=== PATIENT | male | born 1985 | race Caucasian/White ===

== ENCOUNTER 2019-05-15 20:57 | Observation (INO) ==
[2019-05-15] MEDS ORDERED: *HR* LORazepam 2 MG/ML VIAL IM ONE (21:00)
[2019-05-15] MEDS ORDERED: *HR* LORazepam 2 MG/ML VIAL ONE (21:03)
[2019-05-15] MEDS ORDERED: Haloperidol Lactate 5 MG/ML VIAL IM ONE (21:15)
[2019-05-15 21:46] LABS: ABG Base Excess 2 mEq/L (-2 to 3); ABG HCO3 25 mEq/L (21-27); ABG Oxygen Saturation 92 % (95-98); ABG PCO2 34 mmHg (35-45); ABG PH 7.47 pH Units (7.32-7.45); ABG PO2 60 mmHg (85-104); ABG TCO2 26 mEq/L (20-26)
[2019-05-15 22:13] LABS: Amphetamine Screen,Urine Positive ng/mL (Cutoff=1000); Barbiturate Screen,Urine Negative ng/mL (Cutoff=200); Benzodiazepines Screen,Urine Negative ng/mL (Cutoff=200); Cannabinoid Screen,Urine Positive ng/mL (Cutoff = 50); Cocaine Screen,Urine Positive ng/mL (Cutoff= 300); Opiate Screen,Urine Negative ng/mL (Cutoff=300); Phencyclidine Screen,Urine Negative ng/mL (Cutoff=25)
[2019-05-15 22:20] LABS: Basophils # 0.1 K/mcL (0.0-0.2); Basophils % 0.7 %; Eosinophils # 0.1 K/mcL (0.0-0.6); Eosinophils % 0.4 %; Hematocrit 36.2 % (37.5-50.1); Hemoglobin 12.5 g/dL (12.9-16.9); Immature Granulocytes % 0.3 % (0-4); Lymphocytes # 1.2 K/mcL (0.6-4.6); Lymphocytes % 9.9 %; Mean Corpuscular HGB Conc 34.5 g/dL (31.6-35.5); Mean Corpuscular Hemoglobin 29.8 pg (28.0-33.3); Mean Corpuscular Volume 86.2 fL (83.0-100.0); Mean Platelet Volume 9.8 fL (9.4-12.4); Monocytes # 1.3 K/mcL (0.0-1.3); Monocytes % 10.7 %; Neutrophils # 9.4 K/mcL (1.6-8.9); Platelet Count 327 K/mcL (140-400); Red Cell Distribution Width 12.3 % (11.5-14.5); White Blood Count 12.1 K/mcL (4.3-11.1)
[2019-05-15 22:46] LABS: Acetaminophen < 10 mcg/mL (10-20); Alanine Aminotransferase 22 Units/L (7-52); Albumin/Globulin Ratio 1.3 (1.1-2.2); Alkaline Phosphatase 53 Units/L (34-104); Aspartate Amino Transferase 24 Units/L (13-39); BUN/Creatinine Ratio 12 (6-26); Bilirubin,Direct 0.3 mg/dL (0.0-0.2); Bilirubin,Indirect 0.4 mg/dL (0.0-1.0); Bilirubin,Total 0.7 mg/dL (0.3-1.0); Blood Urea Nitrogen 9 mg/dL (6-20); Calcium 9.6 mg/dL (8.6-10.3); Carbon Dioxide 26 mEq/L (23-29); Chloride 98 mEq/L (98-107); Ethanol < 10 mg/dL (Less than 10); Glucose 116 mg/dL (70-105); Osmolality,Calculated 276 (280-300); Potassium 3.6 mEq/L (3.5-5.1); Salicylate < 2.5 mg/dL (15.0-30.0); Sodium 133 mEq/L (136-145); Troponin I < 0.03 ng/mL (< 0.04); eGFR For African Americans > 60 (> 60); eGFR For Non-African Americans > 60 (> 60)
[2019-05-15 23:12] LABS: Creatine Kinase 187 Units/L (30-223)
[2019-05-16] MEDS ORDERED: 0.9 % Sodium Chloride 1,000 ML IVC SCH (00:15)
[2019-05-16] MEDS ORDERED: Isovue-370 500 ML BOTTLE IVP ONE (00:41)
[2019-05-16] MEDS ORDERED: Naloxone 0.4 MG/ML INJ IVP PRN (00:45)
[2019-05-16] MEDS ORDERED: Ondansetron 4 MG/2 ML VIAL IVP PRN (00:45)
[2019-05-16] MEDS ORDERED: *HR* LORazepam 2 MG/ML VIAL IVP PRN (00:54)
[2019-05-16] MEDS ORDERED: 0.9 % Sodium Chloride 1,000 ML IV ONE (00:59)
[2019-05-16 01:48] LABS: Basophils # 0.1 K/mcL (0.0-0.2); Basophils % 0.7 %; Eosinophils # 0.1 K/mcL (0.0-0.6); Eosinophils % 0.4 %; Hematocrit 41.4 % (37.5-50.1); Hemoglobin 13.7 g/dL (12.9-16.9); Immature Granulocytes % 0.4 % (0-4); Lymphocytes # 1.4 K/mcL (0.6-4.6); Lymphocytes % 10.8 %; Mean Corpuscular HGB Conc 33.1 g/dL (31.6-35.5); Mean Corpuscular Hemoglobin 28.8 pg (28.0-33.3); Mean Corpuscular Volume 87.2 fL (83.0-100.0); Mean Platelet Volume 10.2 fL (9.4-12.4); Monocytes # 1.3 K/mcL (0.0-1.3); Monocytes % 9.8 %; Neutrophils # 10.1 K/mcL (1.6-8.9); Platelet Count 370 K/mcL (140-400); Red Blood Count 4.75 M/mcL (4.19-5.50); Red Cell Distribution Width 12.3 % (11.5-14.5); Segmented Neutrophils % 77.9 %; White Blood Count 12.9 K/mcL (4.3-11.1)
[2019-05-16 01:55] LABS: BUN/Creatinine Ratio 11 (6-26); Blood Urea Nitrogen 8 mg/dL (6-20); Calcium 10.3 mg/dL (8.6-10.3); Carbon Dioxide 26 mEq/L (23-29); Chloride 99 mEq/L (98-107); Glucose 100 mg/dL (70-105); Osmolality,Calculated 276 (280-300); Potassium 4.2 mEq/L (3.5-5.1); Sodium 134 mEq/L (136-145); eGFR For African Americans > 60 (> 60); eGFR For Non-African Americans > 60 (> 60)
[2019-05-16 03:06] LABS: Hepatitis B Surface Antigen Nonreactive (Nonreactive)
[2019-05-16 03:34] LABS: Hepatitis B Core IgM Nonreactive (Nonreactive)
[2019-05-16 03:35] LABS: Hepatitis A Antibody IgM Nonreactive (Nonreactive)
[2019-05-16] MEDS: 0.9 % Sodium Chloride 1,000 ML IVC SCH ×2 (03:49→12:10)
[2019-05-16] MEDS: Ipratropium/Albuterol Neb 3 ML IH SCH ×6 (04:19→23:25)
[2019-05-16 04:37] LABS: Hepatitis C Virus Antibody Reactive (Nonreactive)
[2019-05-16] MEDS: *HR* Heparin 5,000 UNIT/ML VIAL SQ SCH ×4 (05:28→23:20)
[2019-05-16] MEDS ORDERED: cloNIDine HCl 0.1 MG TABLET PO PRN ×2 (09:35→09:40)
[2019-05-16] MEDS: Piperacillin/Tazobactam 3.375 GM in 0.9 % Sodium Chloride Mini Bag 100 ML IVPB SCH (16:44)
[2019-05-16] MEDS ORDERED: *HR* LORazepam 2 MG/ML VIAL IVP ONE (20:02)
[2019-05-16] MEDS ORDERED: *HR* HYDROmorphone (PF) 1 MG/ML SYRINGE IVP PRN (20:57)
[2019-05-16] MEDS ORDERED: *HR* Promethazine 25 MG/ML VIAL IVP PRN (20:57)
[2019-05-16] MEDS ORDERED: *HR* Meperidine 25 MG/ML SYRINGE IVP PRN (20:57)
[2019-05-16] MEDS ORDERED: Ondansetron 4 MG/2 ML VIAL IVP ONE (20:57)
[2019-05-16] MEDS ORDERED: Bupivacaine/EPI 1:200k 0.5%PF 10 ML VIAL ONE (21:02)
[2019-05-16] MEDS ORDERED: *HR* FentaNYL (PF) 100 MCG/2 ML VIAL ONE (21:05)
[2019-05-16] MEDS ORDERED: *HR* HYDROMORPHONE 2 MG/ML VIAL ONE (21:30)
[2019-05-16] MEDS ORDERED: Dexamethasone 4 MG/ML VIAL ONE (21:35)
[2019-05-16] MEDS ORDERED: Ondansetron 4 MG/2 ML VIAL ONE (21:35)
[2019-05-16] MEDS ORDERED: *HR* Propofol 200 MG/20 ML VIAL IVP ONE (22:00)
[2019-05-16] MEDS: *HR* HYDROmorphone (PF) 1 MG/ML SYRINGE IVP PRN ×3 (22:10→22:20)
[2019-05-17] MEDS: Ipratropium/Albuterol Neb 3 ML IH SCH (03:38)
[2019-05-17 07:40] VITALS: BP 125/71
[2019-05-17 07:42] LABS: Basophils % 0.2 %; Hematocrit 37.8 % (37.5-50.1); Hemoglobin 13.1 g/dL (12.9-16.9); Immature Granulocytes % 0.5 % (0-4); Lymphocytes # 1.1 K/mcL (0.6-4.6); Mean Corpuscular HGB Conc 34.7 g/dL (31.6-35.5); Mean Corpuscular Hemoglobin 29.4 pg (28.0-33.3); Mean Corpuscular Volume 84.9 fL (83.0-100.0); Mean Platelet Volume 10.1 fL (9.4-12.4); Monocytes % 6.9 %; Neutrophils # 11.8 K/mcL (1.6-8.9); Platelet Count 393 K/mcL (140-400); Red Blood Count 4.45 M/mcL (4.19-5.50); Red Cell Distribution Width 12.2 % (11.5-14.5); Segmented Neutrophils % 84.4 %; White Blood Count 13.9 K/mcL (4.3-11.1)
[2019-05-17] MEDS ORDERED: Ipratropium/Albuterol Neb 3 ML IH PRN (07:59)
[2019-05-17 08:01] LABS: BUN/Creatinine Ratio 15 (6-26); Blood Urea Nitrogen 10 mg/dL (6-20); Calcium 8.8 mg/dL (8.6-10.3); Carbon Dioxide 24 mEq/L (23-29); Chloride 105 mEq/L (98-107); Glucose 124 mg/dL (70-105); Osmolality,Calculated 286 (280-300); Potassium 4.7 mEq/L (3.5-5.1); Sodium 138 mEq/L (136-145); eGFR For African Americans > 60 (> 60); eGFR For Non-African Americans > 60 (> 60)
[2019-05-17] MEDS: Piperacillin/Tazobactam 3.375 GM in 0.9 % Sodium Chloride Mini Bag 100 ML IVPB SCH ×2 (08:19)
[2019-05-17] MEDS ORDERED: Aminoglycoside Consult 1 EACH MC ONE (10:59)
== END 2019-05-17 11:00 | disposition left against medical advice (07) ==
LOC: EMEROOARM 20:57 → 3BNU 20:57 → SUATTDRO 05-16 01:27 → 3BNU 05-16 01:58
PROVIDERS: ADMIT Internal Medicine; ATTEND Student in an Organized Health Care Education/Training Program